=== PATIENT | female | born 1995 | race American Indian/Alaskan Native ===

== ENCOUNTER 2019-03-24 11:18 | Inpatient (IN) | payer MEDICAID ==
[2019-03-24] MEDS ORDERED: AMPICILLIN/NS 2 GM/100 ML 2 GM/100 ML BAG IV ONE (11:42)
[2019-03-24] MEDS ORDERED: LACTATED RINGERS 1,000 ML IV SCH (12:00)
[2019-03-24] MEDS ORDERED: SUBLIMAZE IV PRN (12:08)
[2019-03-24] MEDS ORDERED: BRETHINE IVP PRN (12:08)
[2019-03-24] MEDS ORDERED: XYLOCAINE 2% INFILTRATI ONE (12:08)
[2019-03-24] MEDS ORDERED: ZOFRAN IV PRN ×2 (12:08→23:55)
[2019-03-24] MEDS ORDERED: NARCAN 0.4 MG/1 ML IV PRN (12:08)
[2019-03-24] MEDS ORDERED: BRETHINE SUB-Q PRN (12:08)
[2019-03-24] MEDS ORDERED: MINERAL OIL PO PRN (12:08)
[2019-03-24] MEDS ORDERED: STADOL IV PRN (12:08)
[2019-03-24] MEDS: LACTATED RINGERS 1,000 ML IV SCH ×2 (12:40→13:21)
[2019-03-24] MEDS ORDERED: PITOCin/NS 20 UNIT/1000ML DRIP 20 UNITS/1,000 ML BAG IV SCH (13:00)
[2019-03-24 13:37] LABS: Basophils % (Auto) 0.2 % (0.0-1.8); Eosinophils % (Auto) 0.2 % (0.0-4.3); Hematocrit 38.4 % (30.3-42.9); Lymphocytes # (Auto) 1.4 K/mm3 (1.2-5.4); Lymphocytes % (Auto) 11.3 % (13.4-35.0); Mean Corpuscular HGB Conc 34 % (30-34); Mean Corpuscular Volume 94 fl (79-97); Monocytes # (Auto) 0.9 K/mm3 (0.0-0.8); Monocytes % (Auto) 7.5 % (0.0-7.3); Platelet Count 321 K/mm3 (140-440); Red Blood Count 4.09 M/mm3 (3.65-5.03); Red Cell Distribution Width 12.6 % (13.2-15.2)
[2019-03-24] MEDS ORDERED: NARCAN 2 MG/2 ML IV PRN (14:46)
--- NOTE | 2019-03-24 14:46 | Anesthesia Consultation ---
Anesthesia Consult and Med Hx Date of service: 03/24/19 - Airway Anesthetic Teeth Evaluation: Good ROM Head & Neck: Adequate Mental/Hyoid Distance: Adequate Mallampati Class: Class II Intubation Access Assessment: Probably Good - Pre-Operative Health Status ASA Pre-Surgery Classification: ASA2 Proposed Anesthetic Plan: Epidural, Spinal - Pulmonary Hx Asthma: No COPD: No Hx Pneumonia: No - Cardiovascular System Hx Hypertension: No - Central Nervous System Hx Seizures: No Hx Psychiatric Problems: No - Endocrine Hx Renal Disease: No Hx End Stage Renal Disease: No Hx Hypothyroidism: No Hx Hyperthyroidism: No - Hematic Hx Anemia: No Hx Sickle Cell Disease: No - Other Systems Hx Alcohol Use: No
[2019-03-24] MEDS ORDERED: fentaNYL-BUPIV 2 MCG/ML-0.125% 200 MCG/100 ML BAG EPIDURAL SCH (15:00)
[2019-03-24] MEDS: PITOCin/NS 30 UNIT/500ML 30 UNITS/500 ML BAG IV SCH ×2 (15:39→16:00)
[2019-03-24] MEDS ORDERED: AMPICILLIN/NS 1 GM/50 ML 1 GM/50 ML BAG IV SCH (16:10)
--- NOTE | 2019-03-24 18:13 | History and Physical Report ---
History of Present Illness Date of examination: 03/24/19 Date of admission: 03/24/19 11:38 Chief complaint: contractions History of present illness: Pt is a 23 year old LEOBARDO: 04/07/19 at 38w0d presents with regular contractions and advanced cervical dilation of 5 cm. She denies leakage of fluid or vaginal bleeding. She has had care at [facility] since 10 wks complicated by gonorrhea treated with negative test of cure, marijuana use, trichomonas treated on 03/08/19 with no test of cure yet. She is GBS positive. Past History Past Medical History: no pertinent history Past Surgical History: no surgical history [employer] History: gonorrhea (treated with negative test of cure ), trichomonas (treated, no test of cure yet ) Family/Genetic History: none Social history: no significant social history - Obstetrical History Expected Date of Delivery: 04/07/19 Actual Gestation: 38 Week(s) 0 Day(s) : 2 Para: 0 Hx # Term Pregnancies: 0 Number of Pregnancies: 0 Spontaneous Abortions: 0 Induced : 1 Number of Living Children: 0 Medications and Allergies Allergies Allergy/AdvReac Type Severity Reaction Status Date / Time No Known Allergies Allergy Verified 03/24/19 11:37 Home Medications Medication Instructions Recorded Confirmed Last Taken Type Pnv No.95/Ferrous Fum/Folic AC 1 tab PO DAILY 03/24/19 03/24/19 03/23/19 09:00 History [ Vitamins Tablet] 1 Active Meds: Active Medications Butorphanol Tartrate (Stadol) 2 mg IV Q2H PRN PRN Reason: Pain , Severe (7-10) Last Admin: 03/24/19 13:08 Dose: 2 mg Documented by: Ephedrine Sulfate (Ephedrine Sulfate) 10 mg IV Q2M PRN PRN Reason: Hypotension Fentanyl (Sublimaze) 100 mcg IV Q2H PRN PRN Reason: Labor Pain Lactated Ringer's (Lactated Ringers) 1,000 mls @ 125 mls/hr IV DIRECT SIXTO Oxytocin/Sodium Chloride (Pitocin/Ns 20 Unit/1000ml Drip) 20 units in 1,000 mls @ 125 mls/hr IV DIRECT SIXTO Oxytocin/Sodium Chloride (Pitocin/Ns 30 Unit/500ml) 30 units in 500 mls @ 2 mls/hr IV TITR SIXTO; Protocol Last Titration: 03/24/19 16:55 Dose: 0 mls/hr, 0 mls/hr Documented by: Lactated Ringer's (Lactated Ringers) 1,000 mls @ 125 mls/hr IV DIRECT SIXTO Last Admin: 03/24/19 13:21 Dose: 125 mls/hr Documented by: Ampicillin Sodium (Ampicillin/Ns 1 Gm/50 Ml) 1 gm in 50 mls @ 100 mls/hr IV Q4HR SIXTO; Protocol Last Admin: 03/24/19 16:00 Dose: 100 mls/hr Documented by: Fentanyl/Bupivacaine/Sodium Chlor (Fentanyl-Bupiv 2 Mcg/Ml-0.125%) 200 mcg in 100 mls @ 12 mls/hr EPIDURAL TITR SIXTO; Protocol Last Admin: 03/24/19 15:56 Dose: 12 mls/hr Documented by: Mineral Oil (Mineral Oil) 30 ml PO QHS PRN PRN Reason: Constipation Naloxone HCl (Narcan 0.4 Mg/1 Ml) 0.1 mg IV Q2MIN PRN PRN Reason: Res Rate </= 8 or 02 SAT < 92% Naloxone HCl (Narcan 2 Mg/2 Ml) 0.2 mg IV Q5M PRN PRN Reason: Respiratory sedation Ondansetron HCl (Zofran) 4 mg IV Q8H PRN PRN Reason: Nausea And Vomiting Terbutaline Sulfate (Brethine) 0.25 mg SUB-Q ONCE PRN PRN Reason: Hyperstimulation/Hypertonicity Terbutaline Sulfate (Brethine) 0.25 mg IVP ONCE PRN PRN Reason: Hyperstimulation/Hypertonicity Review of Systems All systems: negative - Vital Signs Vital signs: Vital Signs Pulse BP 67 122/73 03/24/19 11:35 03/24/19 11:35 Temp Pulse Resp BP Pulse Ox 96.7 F L 75 16 118/69 88 03/24/19 13:08 03/24/19 17:57 03/24/19 13:08 03/24/19 17:57 03/24/19 16:59 - Physical Exam Breasts: Positive: deferred Cardiovascular: Regular rate Lungs: Positive: Clear to auscultation Abdomen: Positive: soft (gravid ) Genitourinary (Female): Positive: normal external genitalia Uterus: Positive: enlarged (gravid ) Extremities: Positive: normal - Obstetrical FHR: auscultation normal Uterine Contraction Monitor Mode: External Cervical Dilatation: 9.5 Cervical Effacement Percentage: 100 station: 0 Uterine Contraction Pattern: Regular Uterine Tone Measurement Phase: Resting Uterine Contraction Intensity: Strong/Firm Results Result Diagrams: 03/24/19 12:00 Abnormal lab results 03/24/19 Range/Units 12:00 WBC 12.2 H (4.5-11.0) K/mm3 RDW 12.6 L (13.2-15.2) % Lymph % (Auto) 11.3 L (13.4-35.0) % [place] % (Auto) 7.5 H (0.0-7.3) % [place] # 0.9 H (0.0-0.8) K/mm3 Seg Neutrophils % 80.8 H (40.0-70.0) % Seg Neutrophils # 9.9 H (1.8-7.7) K/mm3 All other labs normal. Assessment and Plan A: IUP at 38w0d Transitional labor Gonorrhea treated with negative test of cure Trichomonas treated with no test of cure GBS positive on prophylaxis P: Admit to labor and delivery Routine intrapartum care
--- NOTE | 2019-03-24 19:35 | Event Note ---
Date: 03/24/19 Pt less comfortable with epidural turned off. SVE: /+1. Continue routine intrapartum care.
--- NOTE | 2019-03-24 20:53 | Procedure Note ---
OB Delivery Note - Delivery Date of Delivery: 03/24/19 Surgeon: ROLANDO ENGEL Estimated blood loss: other (400 mL) - Vaginal Delivery presentation: vertex Delivery position: OA Intrapartum events: PROM->1hr before delivery, decreased FHT variability, mult.variable deceleratio Delivery induction: none Delivery augmentation: pitocin Delivery monitor: external FHT, external uterine Route of delivery: Delivery placenta: spontaneous Delivery cord: nuchal cord (tight; doubly clamped and cut ), 3 umbilical vessels Episiotomy: none Delivery laceration: none Anesthesia: epidural - Infant A at 1 minute: 7 at 5 minutes: 9 Gender: Male (2467g (5lb 7oz) @ 2030 pm)
[2019-03-24] MEDS ORDERED: TUCKS PAD TP PRN (23:55)
[2019-03-24] MEDS ORDERED: DULCOLAX PR PRN (23:55)
[2019-03-24] MEDS ORDERED: SODIUM CHLORIDE FLUSH SYRINGE 10 ML IV PRN (23:55)
[2019-03-24] MEDS ORDERED: BENADRYL PO PRN (23:55)
[2019-03-24] MEDS ORDERED: PHENERGAN PO PRN (23:55)
[2019-03-24] MEDS ORDERED: PHENERGAN PR PRN (23:55)
[2019-03-24] MEDS ORDERED: NORCO 5/325 PO PRN (23:55)
[2019-03-24] MEDS ORDERED: MILK OF MAGNESIA PO PRN (23:55)
[2019-03-24] MEDS ORDERED: LANSINOH TP PRN ×2 (23:55)
[2019-03-24] MEDS ORDERED: DERMOPLAST TP PRN (23:55)
[2019-03-24] MEDS ORDERED: TYLENOL PO PRN (23:55)
[2019-03-25] MEDS: IBUPROFEN PO SCH ×4 (03:10→23:38)
--- NOTE | 2019-03-25 07:14 | Progress Note ---
Assessment and Plan A: ~ 12 hrs s/p at term P: Routine care. Follow up Hemoglobin and Hematocrit Subjective - Subjective Date of service: 03/25/19 Principal diagnosis: s/p at term Interval history: Pt without complaints Patient reports: appetite normal, voiding normally, pain well controlled, ambulating normally : doing well Objective - Vital Signs Latest vital signs: Vital Signs Temp Pulse Resp BP Pulse Ox 03/24/19 23:56 98.6 F 79 24 105/60 98 03/24/19 23:10 98.1 F 75 16 112/58 03/24/19 21:42 87 116/72 03/24/19 21:27 82 118/71 03/24/19 21:12 86 113/70 03/24/19 20:57 105 H 129/92 03/24/19 20:27 83 135/81 03/24/19 20:12 92 H 130/69 03/24/19 19:58 109 H 167/96 03/24/19 19:43 87 131/63 03/24/19 19:28 85 118/70 03/24/19 19:15 98.6 F 22 03/24/19 19:13 87 116/75 03/24/19 18:57 101 H 122/78 03/24/19 18:42 96 H 123/71 03/24/19 18:27 80 123/70 03/24/19 18:12 83 119/76 03/24/19 17:57 75 118/69 03/24/19 17:43 92 H 121/76 03/24/19 17:28 72 118/72 03/24/19 17:14 69 111/70 03/24/19 16:59 67 128/72 88 03/24/19 16:57 74 100 03/24/19 16:52 73 100 03/24/19 16:47 64 100 03/24/19 16:42 64 100 03/24/19 16:37 66 100 03/24/19 16:32 66 100 03/24/19 16:27 74 99 03/24/19 16:22 62 100 03/24/19 16:17 68 99 03/24/19 16:12 59 L 99 03/24/19 16:07 65 100 03/24/19 16:02 61 100/68 100 03/24/19 16:01 67 108/69 03/24/19 15:57 61 100 03/24/19 15:56 65 98/61 03/24/19 15:52 65 99 03/24/19 15:51 60 109/68 03/24/19 15:47 59 L 100 03/24/19 15:45 62 103/63 03/24/19 15:42 64 101/63 100 03/24/19 15:37 63 100 03/24/19 15:36 61 106/58 03/24/19 15:32 65 99 03/24/19 15:30 64 110/56 03/24/19 15:27 66 99 03/24/19 15:26 62 112/55 03/24/19 15:22 64 99 03/24/19 15:21 65 124/77 03/24/19 15:17 87 100 03/24/19 15:15 67 109/65 03/24/19 15:12 71 100 03/24/19 15:11 67 112/67 03/24/19 15:07 69 100 03/24/19 15:02 67 99 03/24/19 14:58 67 101/57 03/24/19 13:08 96.7 F L 16 03/24/19 13:07 64 128/61 03/24/19 11:44 98.4 F 67 20 03/24/19 11:35 67 122/73 Intake and Output 03/24/19 03/25/19 03/25/19 22:59 06:59 14:59 Intake Total 4.367 Output Total 300 500 Balance -295.633 -500 Intake: IV 4.367 PITOCin/NS 30 UNIT/500ML 4.367 30 units In 500 ml @ 2 mls/hr IV TITR SIXTO Rx#: [id number] Output: Urine 300 500 Void 300 500 Other: Total, Output Amount 300 500 Estimated Blood Loss 400 - Exam Breasts: Present: deferred Cardiovascular: Present: Regular rate Lungs: Present: Clear to auscultation Abdomen: Present: soft Uterus: Present: fundal height at umbilicus Extremities: Present: normal - Labs Labs: Abnormal lab results 03/24/19 Range/Units 12:00 WBC 12.2 H (4.5-11.0) K/mm3 RDW 12.6 L (13.2-15.2) % Lymph % (Auto) 11.3 L (13.4-35.0) % [place] % (Auto) 7.5 H (0.0-7.3) % [place] # 0.9 H (0.0-0.8) K/mm3 Seg Neutrophils % 80.8 H (40.0-70.0) % Seg Neutrophils # 9.9 H (1.8-7.7) K/mm3
[2019-03-25 09:30] LABS: Hematocrit 34.6 % (30.3-42.9); Hemoglobin 11.5 gm/dl (10.1-14.3)
[2019-03-25] MEDS: FEOSOL PO SCH ×2 (09:45→23:39)
[2019-03-25] MEDS ORDERED: M-M-R II VACCINE SUB-Q ONE (20:54)
[2019-03-26] MEDS ORDERED: BOOSTRIX IM ONE (06:00)
[2019-03-26] MEDS: IBUPROFEN PO SCH ×2 (06:10→11:56)
--- NOTE | 2019-03-26 08:32 | Progress Note ---
Assessment and Plan - Patient Problems (1) Active labor at term Current Visit: Yes Status: Acute Plan to address problem: patient doing well discharge at 48 hours Subjective - Subjective Date of service: 03/26/19 Principal diagnosis: s/p at term Interval history: Patient without complaints. Pain well controlled. Patient reports: appetite normal, voiding normally, pain well controlled [place]: doing well Objective - Vital Signs Latest vital signs: Vital Signs Temp Pulse Resp BP BP Pulse Ox 03/26/19 07:10 18 03/26/19 06:10 18 03/26/19 00:45 98.3 F 78 20 108/67 03/26/19 00:38 18 03/25/19 23:38 18 03/25/19 18:54 18 03/25/19 16:07 97.7 F 64 20 104/63 100 03/25/19 08:54 76 96/67 100 Intake and Output 03/25/19 03/26/19 03/26/19 22:59 06:59 14:59 Intake Total 480 Output Total 1 Balance -1 480 Intake: Intake, Free Water 480 Output: Urine 1 Void 1 Other: Total, Output Amount 1 # Voids Void 800 1 - Exam Uterus: Present: normal, firm
--- NOTE | 2019-03-26 08:33 | Discharge Summary ---
Providers - Providers Date of Admission: 03/24/19 11:38 Date of discharge: 03/26/19 Attending physician: ROLANDO ENGEL Primary care physician: ROLANDO ENGEL Hospitalization Reason for admission: active labor Delivery: Discharge diagnosis: IUP at term delivered baby: male Hospital course: Patient admitted in active labor. Had a . Inadequate coverage for GBS. Monitored 48 hours Condition at discharge: Good Disposition: DC-01 TO HOME OR SELFCARE - Discharge Diagnoses (1) Active labor at term Status: Acute Plan - Discharge Medications Prescriptions: Ibuprofen [Motrin] 800 mg PO Q8HR PRN #30 tablet PRN Reason: Pain, Moderate (4-6) HYDROcodone/APAP 5-325 [Axis 5/325] 1 each PO Q6HR PRN #30 tablet PRN Reason: Pain - Provider Discharge Summary Activity: no sex for 6 weeks, no heavy lifting 4 weeks, no strenuous exercise Diet: routine Instructions: routine Additional instructions: [] Smoking cessation referral if applicable(refer to patient education folder for contact #) [] Refer to [facility]'s [facility] Booklet Call your doctor immediately for: * Fever > 100.5 * Heavy vaginal bleeding ( >1 pad per hour) * Severe persistent headache * Shortness of breath * Reddened, hot, painful area to leg or breast * schedule visit in 4 weeks - Follow up plan
[2019-03-26] MEDS: FEOSOL PO SCH (11:56)
[2019-03-26 14:57] VITALS: BP 110/61
== END 2019-03-26 17:15 | disposition home or self-care (01) | DRG 775 ==
LOC: TRG 11:18 → LD 11:38 → OB 23:53
PROVIDERS: ADMIT Obstetrics & Gynecology; ATTEND Obstetrics & Gynecology
PROC: 10E0XZZ Delivery of Products of Conception, External Approach (ICD-10-PCS; principal; 2019-03-24)
PROC: 3E0R3BZ Introduction of Anesthetic Agent into Spinal Canal, Percutaneous Approach (ICD-10-PCS; 2019-03-24)
PROC: 00HU33Z Insertion of Infusion Device into Spinal Canal, Percutaneous Approach (ICD-10-PCS; 2019-03-24)
PROC: 3E0234Z Introduction of Serum, Toxoid and Vaccine into Muscle, Percutaneous Approach (ICD-10-PCS; 2019-03-25)
DX: O76 Abnormality in fetal heart rate and rhythm complicating labor and delivery (principal); O99.824 Streptococcus B carrier state complicating childbirth; O69.81X0 Labor and delivery complicated by cord around neck, without compression, not applicable or unspecified; Z3A.38 38 weeks gestation of pregnancy; Z37.0 Single live birth; Z23 Encounter for immunization
CPT/HCPCS: 36415; 59025; 85014; 85018; 85025; 86592; 86850; 86900; 86901; 96372; G0378; J0290; J0595; J0702; J2270; J2590; J3475; J7120

== ENCOUNTER 2021-10-30 06:06 | Emergency (ER) | payer SELFPAY ==
[2021-10-30] MEDS ORDERED: MORPHINE 4 MG/1 ML INJ IV ONE (07:10)
[2021-10-30] MEDS ORDERED: ONDANSETRON 4 MG/2 ML INJ IV ONE (07:10)
[2021-10-30] MEDS ORDERED: SODIUM CHLORIDE 0.9% 1000 ML 1,000 ML IV ONE (07:10)
--- NOTE | 2021-10-30 07:16 | Emergency Department Report ---
HPI - General Chief Complaint: Abdominal Pain Time Seen by Provider: 10/30/21 07:04 - HPI HPI: 26-year-old -[place] female presents to the emergency department with complaint of a 4-hour history of lower abdominal pain, nausea and vomiting. She has a past medical history of lupus. She has not taken anything for symptoms prior to presentation. She says that the abdominal pain is 10 out of 10 in intensity. No known aggravating or alleviating factors. She denies any fever, dysuria, vaginal bleeding or discharge, back pain. No recent travel or sick contacts at home. ED Past Medical Hx - Past Medical History Previous Medical History?: No Hx Hypertension: No Hx Congestive Heart Failure: No Hx Diabetes: No Hx Deep Vein Thrombosis: No Hx Renal Disease: No Hx Sickle Cell Disease: No Hx Seizures: No Hx Asthma: No Hx COPD: No Hx HIV: No - Surgical History Past Surgical History?: No - Social History Smoking Status: Never Smoker - Medications Home Medications: Home Medications Medication Instructions Recorded Confirmed Last Taken Type HYDROcodone/APAP 5-325 [Silver 1 each PO Q6HR PRN #30 tablet 03/24/19 Unknown Rx 5/325] Pnv No.95/Ferrous Fum/Folic AC 1 tab PO DAILY 03/24/19 03/24/19 03/23/19 09:00 History [ Vitamins Tablet] 1 Ibuprofen [Motrin 600 MG tab] 600 mg PO Q8H PRN #20 tablet 10/30/21 Unknown Rx Ondansetron [Zofran Odt] 4 mg PO Q8HR PRN #12 tab.rapdis 10/30/21 Unknown Rx ED Review of Systems ROS: Stated complaint: abd pain Other details as noted in HPI Comment: All other systems reviewed and negative Constitutional: denies: chills, fever Eyes: denies: eye pain, vision change ENT: denies: ear pain, throat pain Respiratory: denies: cough, shortness of breath Cardiovascular: denies: chest pain, palpitations Gastrointestinal: abdominal pain, nausea, vomiting Genitourinary: denies: dysuria, discharge Musculoskeletal: denies: back pain, arthralgia Skin: denies: rash, lesions Neurological: denies: headache, weakness Physical Exam - Physical Exam Vital Signs: Vital Signs 10/30/21 06:06 Temperature 98.0 F Pulse Rate 76 Respiratory 18 Rate Blood Pressure 132/86 [Left] O2 Sat by Pulse 98 Oximetry Physical Exam: GENERAL: The patient is well-developed well-nourished. HENT: Normocephalic. Atraumatic. Patient has moist mucous membranes. EYES: Extraocular motions are intact. NECK: Supple. Trachea is midline. CHEST/LUNGS: Clear to auscultation. There is no respiratory distress noted. HEART/CARDIOVASCULAR: Regular. There is no tachycardia. There is no murmur. ABDOMEN: Abdomen is soft. Generalized abdominal tenderness to palpation with lower quadrants greater than upper. No guarding. Patient has normal bowel sounds. There is no abdominal distention. SKIN: Skin is warm and dry. NEURO: The patient is awake, alert, and oriented. The patient is cooperative. Normal speech. MUSCULOSKELETAL: There is no tenderness or deformity. There is no limitation range of motion. ED Course Vital Signs 10/30/21 06:06 Temperature 98.0 F Pulse Rate 76 Respiratory 18 Rate Blood Pressure 132/86 [Left] O2 Sat by Pulse 98 Oximetry ED Medical Decision Making - Lab Data Result diagrams: 10/30/21 07:33 10/30/21 07:33 Lab Results 10/30/21 10/30/21 10/30/21 Range/Units 07:33 07:33 07:33 WBC 10.0 (4.5-11.0) K/mm3 RBC 4.40 (3.65-5.03) M/mm3 Hgb 13.5 (10.1-14.3) gm/dl Hct 40.1 (30.3-42.9) % MCV 91 (79-97) fl MCH 31 (28-32) pg MCHC 34 (30-34) % RDW 12.8 L (13.2-15.2) % Plt Count 314 (140-440) K/mm3 Lymph % (Auto) 11.6 L (13.4-35.0) % [place] % (Auto) 5.6 (0.0-7.3) % Eos % (Auto) 0.1 (0.0-4.3) % Baso % (Auto) 0.3 (0.0-1.8) % Lymph # (Auto) 1.2 (1.2-5.4) K/mm3 [place] # (Auto) 0.6 (0.0-0.8) K/mm3 Eos # (Auto) 0.0 (0.0-0.4) K/mm3 Baso # (Auto) 0.0 (0.0-0.1) K/mm3 Seg Neutrophils % 82.4 H (40.0-70.0) % Seg Neutrophils # 8.3 H (1.8-7.7) K/mm3 Sodium 142 (137-145) mmol/L Potassium 5.0 (3.6-5.0) mmol/L Chloride 102.8 (98-107) mmol/L Carbon Dioxide 19 L (22-30) mmol/L Anion Gap 25 mmol/L BUN 15 (7-17) mg/dL Creatinine 0.6 (0.6-1.2) mg/dL Estimated GFR > 60 ml/min BUN/Creatinine Ratio 25 % Glucose 83 (65-100) mg/dL Calcium 9.3 (8.4-10.2) mg/dL Total Bilirubin 1.00 (0.1-1.2) mg/dL Direct Bilirubin < 0.2 (0-0.2) mg/dL Indirect Bilirubin 0.8 mg/dL AST 59 H (5-40) units/L ALT 44 (7-56) units/L Alkaline Phosphatase 99 (35-129) units/L Total Protein 8.1 (6.3-8.2) g/dL Albumin 4.6 (3.9-5) g/dL Albumin/Globulin Ratio 1.3 % Lipase 21 (13-60) units/L HCG, Qual Negative (Negative) Urine Color (Yellow) Urine Turbidity (Clear) Urine pH (5.0-7.0) Ur Specific Index (1.003-1.030) Urine Protein (Negative) mg/dL Urine Glucose (UA) (Negative) mg/dL Urine Ketones (Negative) mg/dL Urine Blood (Negative) Urine Nitrite (Negative) Urine Bilirubin (Negative) Urine Urobilinogen (<2.0) mg/dL Ur Leukocyte Esterase (Negative) Urine WBC (Auto) (0.0-6.0) /HPF Urine RBC (Auto) (0.0-6.0) /HPF U Epithel Cells (Auto) (0-13.0) /HPF Urine Mucus /HPF 12/17/21 Range/Units Unknown WBC (4.5-11.0) K/mm3 RBC (3.65-5.03) M/mm3 Hgb (10.1-14.3) gm/dl Hct (30.3-42.9) % MCV (79-97) fl MCH (28-32) pg MCHC (30-34) % RDW (13.2-15.2) % Plt Count (140-440) K/mm3 Lymph % (Auto) (13.4-35.0) % [place] % (Auto) (0.0-7.3) % Eos % (Auto) (0.0-4.3) % Baso % (Auto) (0.0-1.8) % Lymph # (Auto) (1.2-5.4) K/mm3 [place] # (Auto) (0.0-0.8) K/mm3 Eos # (Auto) (0.0-0.4) K/mm3 Baso # (Auto) (0.0-0.1) K/mm3 Seg Neutrophils % (40.0-70.0) % Seg Neutrophils # (1.8-7.7) K/mm3 Sodium (137-145) mmol/L Potassium (3.6-5.0) mmol/L Chloride (98-107) mmol/L Carbon Dioxide (22-30) mmol/L Anion Gap mmol/L BUN (7-17) mg/dL Creatinine (0.6-1.2) mg/dL Estimated GFR ml/min BUN/Creatinine Ratio % Glucose (65-100) mg/dL Calcium (8.4-10.2) mg/dL Total Bilirubin (0.1-1.2) mg/dL Direct Bilirubin (0-0.2) mg/dL Indirect Bilirubin mg/dL AST (5-40) units/L ALT (7-56) units/L Alkaline Phosphatase (35-129) units/L Total Protein (6.3-8.2) g/dL Albumin (3.9-5) g/dL Albumin/Globulin Ratio % Lipase (13-60) units/L HCG, Qual (Negative) Urine Color Yellow (Yellow) Urine Turbidity Clear (Clear) Urine pH 6.0 (5.0-7.0) Ur Specific Index 1.023 (1.003-1.030) Urine Protein 30 mg/dl (Negative) mg/dL Urine Glucose (UA) Neg (Negative) mg/dL Urine Ketones 80 (Negative) mg/dL Urine Blood Neg (Negative) Urine Nitrite Neg (Negative) Urine Bilirubin Neg (Negative) Urine Urobilinogen < 2.0 (<2.0) mg/dL Ur Leukocyte Esterase Neg (Negative) Urine WBC (Auto) 3.0 (0.0-6.0) /HPF Urine RBC (Auto) 1.0 (0.0-6.0) /HPF U Epithel Cells (Auto) 6.0 (0-13.0) /HPF Urine Mucus 3+ /HPF - Radiology Data Radiology results: report reviewed, image reviewed interpreted by me: Abdominal x-ray shows nonspecific nonobstructive bowel gas. No free air. ULTRASOUND ABDOMEN, LIMITED (RIGHT UPPER QUADRANT) INDICATION: Upper abd pain. COMPARISON: None available. FINDINGS: Pancreas: Visualized portion shows no significant abnormality. Liver: No significant abnormality. Gallbladder: No significant abnormality. Sonographic Porras's sign: Not performed. Bile ducts: No significant abnormality. Common Bile Duct measures 2.2 mm. Free fluid: None. Additional Findings: None. IMPRESSION: 1. No sonographic abnormality of the right upper quadrant. - Medical Decision Making This patient presents to the emergency department with some acute lower abdominal pain, nausea and vomiting. On examination there is some reproducible generalized abdominal pain that is worse in the lower quadrants. She does not appear in any acute distress. The abdomen is soft, nondistended. Abdominal x- ray shows nonspecific nonobstructive bowel gas, and no free air. Labs have been unremarkable including CBC, CMP, urinalysis, and the patient is not . There was some elevation in the AST and the patient does admit to some recent alcohol use, although denies any history of daily alcohol use or dependence. She had a right upper quadrant ultrasound that did not show any acute process. Patient was given some IV analgesia, IV fluid resuscitation and antiemetics. Upon reevaluation she is feeling greatly improved. Able to pass an oral challenge. Patient was made aware of all imaging and lab results. She will av oid any further alcohol or any Tylenol/acetaminophen until follow-up with gastroenterology. She was given outpatient referral for primary care and [facility]. Critical Care Time: No Critical care attestation.: If time is entered above; I have spent that time in minutes in the direct care of this critically ill patient, excluding procedure time. ED Disposition Clinical Impression: Elevated liver enzymes, History of lupus Abdominal pain Qualifiers: Abdominal location: generalized Qualified Code(s): R10.84 - Generalized abdominal pain Disposition: HOME / SELF CARE / HOMELESS Is pt being admited?: No Condition: Stable Instructions: Abdominal Pain, Adult, Abdominal Pain (ED) Additional Instructions: Please follow-up with a primary care physician in the next few days. I am giving you a referral for [facility] to follow-up regarding your elevated liver enzyme. Because of this elevated liver enzyme, please avoid any alcohol or Tylenol/acetaminophen use until follow-up with gastroenterology. Return to the emergency department with any worsening of your symptoms, new or concerning symptoms not addressed during this current emergency department visit, or with any acute distress. Prescriptions: Ibuprofen [Motrin 600 MG tab] 600 mg PO Q8H PRN #20 tablet PRN Reason: Pain Ondansetron [Zofran Odt] 4 mg PO Q8HR PRN #12 tab.rapdis PRN Reason: Nausea Referrals: PRIMARY CAREM[facility] [Primary Care Provider] - 3-5 Days [facility] [Provider Group] - 3-5 Days Time of Disposition: 12:35
[2021-10-30 09:12] LABS: Basophils % (Auto) 0.3 % (0.0-1.8); Eosinophils % (Auto) 0.1 % (0.0-4.3); Hematocrit 40.1 % (30.3-42.9); Hemoglobin 13.5 gm/dl (10.1-14.3); Lymphocytes # (Auto) 1.2 K/mm3 (1.2-5.4); Lymphocytes % (Auto) 11.6 % (13.4-35.0); Mean Corpuscular HGB Conc 34 % (30-34); Mean Corpuscular Volume 91 fl (79-97); Monocytes # (Auto) 0.6 K/mm3 (0.0-0.8); Monocytes % (Auto) 5.6 % (0.0-7.3); Platelet Count 314 K/mm3 (140-440); Red Cell Distribution Width 12.8 % (13.2-15.2)
[2021-10-30 09:58] LABS: Alanine Aminotransferase 44 units/L (7-56); Albumin 4.6 g/dL (3.9-5); BUN/Creatinine Ratio 25; Bilirubin,Direct < 0.2 mg/dL (0-0.2); Blood Urea Nitrogen 15 mg/dL (7-17); Calcium 9.3 mg/dL (8.4-10.2); Hemolysis Index 260
--- NOTE | 2021-10-30 10:18 | XRay Report ---
Abdomen 2 views INDICATION: Abdominal pain IMPRESSION: No acute findings identified. Signer Name: Panfilo Albarado MD Signed: 10/30/2021 10:13 AM Workstation Name: [id number]
[2021-10-30 11:05] LABS: Bilirubin,Urine NEG (Negative); Blood,Urine NEG (Negative); Color,Urine Yellow (Yellow); Mucus,Urine 3+ /HPF; Urobilinogen,Urine < 2.0 mg/dL (<2.0)
--- NOTE | 2021-10-30 12:23 | Ultrasound Report ---
ULTRASOUND ABDOMEN, LIMITED (RIGHT UPPER QUADRANT) INDICATION: Upper abd pain. COMPARISON: None available. FINDINGS: Pancreas: Visualized portion shows no significant abnormality. Liver: No significant abnormality. Gallbladder: No significant abnormality. Sonographic Porras's sign: Not performed. Bile ducts: No significant abnormality. Common Bile Duct measures 2.2 mm. Free fluid: None. Additional Findings: None. IMPRESSION: 1. No sonographic abnormality of the right upper quadrant. Signer Name: Jace Murcia MD Signed: 10/30/2021 12:15 PM Workstation Name: [id number]
[2021-10-30 12:49] VITALS: BP 112/76
== END 2021-10-30 12:48 | disposition home or self-care (01) ==
LOC: ED 06:06
DX: R10.30 Lower abdominal pain, unspecified (principal); R74.01 Elevation of levels of liver transaminase levels
CPT/HCPCS: 36415; 74019; 76705; 80048; 80076; 81001; 83690; 84703; 85025; 96361; 96374; 96375; 99285; J2270; J2405; J7030; Q0162

== ENCOUNTER 2022-04-12 09:27 | Emergency (ER) | payer MEDICAID ==
[2022-04-12 09:53] VITALS: BP 109/63
[2022-04-12 10:46] LABS: Basophils # (Auto) 0.1 K/mm3 (0.0-0.1); Basophils % (Auto) 0.6 % (0.0-1.8); Eosinophils % (Auto) 0.4 % (0.0-4.3); Hematocrit 41.2 % (30.3-42.9); Hemoglobin 14.2 gm/dl (10.1-14.3); Lymphocytes # (Auto) 2.4 K/mm3 (1.2-5.4); Lymphocytes % (Auto) 28.4 % (13.4-35.0); Mean Corpuscular HGB Conc 34 % (30-34); Mean Corpuscular Volume 92 fl (79-97); Monocytes # (Auto) 0.7 K/mm3 (0.0-0.8); Monocytes % (Auto) 8.7 % (0.0-7.3); Platelet Count 334 K/mm3 (140-440); Red Blood Count 4.48 M/mm3 (3.65-5.03); Red Cell Distribution Width 12.9 % (13.2-15.2)
[2022-04-12 11:08] LABS: Alanine Aminotransferase 13 units/L (7-56); Albumin 4.6 g/dL (3.9-5); Blood Urea Nitrogen 8 mg/dL (7-17); Calcium 9.4 mg/dL (8.4-10.2); Hemolysis Index 6
[2022-04-12 11:16] LABS: BUN/Creatinine Ratio 13
[2022-04-12 15:36] LABS: HCG Qualitative,Urine Positive (Negative)
[2022-04-12 15:48] LABS: Bilirubin,Urine NEG (Negative); Blood,Urine NEG (Negative); Color,Urine Amber (Yellow); Mucus,Urine 3+ /HPF
== END 2022-04-12 18:01 | disposition left against medical advice (07) ==
LOC: ED 09:27
DX: R07.9 Chest pain, unspecified (principal); R06.02 Shortness of breath; Z53.21 Procedure and treatment not carried out due to patient leaving prior to being seen by health care provider
CPT/HCPCS: 36415; 80053; 81001; 81025; 83690; 85025; 87086